=== PATIENT | male | born 1990 | race Caucasian/White ===

== ENCOUNTER 2023-02-05 19:35 | Inpatient (IN) | payer MEDICAID, SELFPAY ==
[2023-02-05 19:48] VITALS: BP 124/85; PULSE 97; RESP 18; TEMP 36.6; O2SAT 98
--- NOTE | 2023-02-05 20:20 | W.ED.PSYCHS ---
HPI - Psych General: Chief Complaint: Psychiatric Symptoms Stated Complaint: SI Time Seen by Provider: 02/05/23 20:00 Source: patient Mode of arrival: ambulatory Limitations: no limitations History of Present Illness: 32-year-old male states that he has been having increasing depression with suicidal thoughts over the last week. He states has been under a lot of stress he did recently broken up with his ex and been kicked out of the house. He states that he used to be on psych meds he was on Celexa he has not had them in quite some time he states that he has had thoughts of shooting himself along with other thoughts and needs to get help. Associated symptoms: Reports depression Review of Systems Const: Denies: fever(s), chills, body aches or change in appetite ENMT: Denies: throat pain or dental pain Card: Denies: chest pain Resp: Denies: dyspnea GI: Denies: abdominal pain, nausea, vomiting or diarrhea : Denies: dysuria Musc: Denies: neck pain or back pain Skin/Breast: Denies: rash Neuro: Denies: headache(s) Psych: Reports: depression Physical Exam Const: COMMON NORMALS: no acute distress, patient oriented x3 and healthy appearing HENMT: COMMON NORMALS: normocephalic and atraumatic HEAD & SCALP: normocephalic and atraumatic Eye: COMMON NORMALS: conjunctivae normal CONJUNCTIVA: Yes conjunctivae normal Neck/C-Spine: COMMON NORMALS: full ROM and supple Chest: COMMONS NORMALS: normal inspection of the chest and normal palpation of entire chest wall Resp: COMMON NORMALS: normal respiratory effort Cardio: COMMON NORMALS: regular rate, regular rhythm and No murmurs present (Cardio) RATE: regular rate RHYTHM: regular rhythm GI: INSPECTION: Yes normal to inspection Extremity: COMMON NORMALS: normal to inspection and full ROM Neuro: COMMON NORMALS: patient oriented x3, moves all extremities and no focal motor deficits Psych: COMMON NORMALS: mental status grossly normal, Normal thought process present and cooperative THOUGHT PROCESS: Normal thought process present THOUGHT CONTENT: Yes Suicidality present Skin: COMMON NORMALS: no rashes or lesions noted and no wounds GENERAL SKIN EXAM: no rashes or lesions noted Course Vital Signs: Vital signs: Vital Signs Temperature 97.9 F 02/05/23 19:48 Pulse Rate 97 02/05/23 19:48 Respiratory Rate 18 02/05/23 19:48 Blood Pressure 124/85 02/05/23 19:48 Pulse Oximetry 98 02/05/23 19:48 Oxygen Delivery Me thod Room Air 02/05/23 19:48 MDM - Psych Medical Decision Making Patient presents here with suicidal ideations he is medically cleared placed under 96-hour hold I spoke to psychiatrist will admit at this time. Medical Records I reviewed the patient's medical records. Lab Data I reviewed the patient's lab results. 02/05/23 20:26 02/05/23 20: Laboratory Results WBC 5.4 10^3/uL (4.0-10.0) 02/05/23: RBC 4.73 10^6/uL (4.1-5.3) 02/05/23: Hgb 14.4 g/dL (11.7-16.6) 02/05/23: Hct 42.0 % (42.0-52.0) 02/05/23: MCV 88.8 fl (80-94) 02/05/23 20: MCH 30.4 pg (28.0-34.0) 02/05/23: MCHC 34.3 g/dL (30.0-36.0) 02/05/23: RDW 13.2 % (12.1-15.1) 02/05/23 20: Plt Count 213 10^3/cmm (130-400) 02/05/23: MPV 10.0 fL (7.4-10.4) 02/05/23: Neut % (Auto) 47.2 % 02/05/23 20: Lymph % (Auto) 44.4 % 02/05/23: [place] % (Auto) 6.5 % 02/05/23: Eos % (Auto) 1.3 % 02/05/23: Baso % (Auto) 0.4 % 02/05/23: Neut # (Auto) 2.56 10^3/uL (1.8-7.7) 02/05/23: Lymph # (Auto) 2.4 10^3/uL (0.8-4.8) 02/05/23 20: [place] # (Auto) 0.4 10^3/uL (0.2-0.9) 02/05/23 20: Eos # (Auto) 0.1 10^3/uL (0.0-0.8) 02/05/23 20: Baso # (Auto) 0.0 10^3/uL (0.0-0.1) 02/05/23 20: Nucleated RBC % (auto) 0 % 02/05/23: Nucleated RBCs # 0.0 /100WBC 02/05/23 20: Sodium 140 mmol/L (136-145) 02/05/23 20: Potassium 4.0 mmol/L (3.5-5.1) 02/05/23: Chloride 104 mmol/L (98-107) 02/05/23: Carbon Dioxide 27 mmol/L (22-29) 02/05/23: Anion Gap 13.0 (5-19) 02/05/23: BUN 9 mg/dL (6-20) 02/05/23 20: Creatinine 1.2 mg/dL (0.7-1.2) 02/05/23 20: GFR Calculation 70.2 mL/min (90-130) L 02/05/23: Glucose 86 mg/dL (65-115) 02/05/23 20: Calculated Osmolality 288 mOsm/kg (285-295) 02/05/23: Calcium 8.9 mg/dL (8.5-10.5) 02/05/23: Total Bilirubin 0.6 mg/dL (0.15-1.2) 02/05/23 20: AST 23 U/L (0-40) 02/05/23: ALT 27 U/L (0-41) 02/05/23 20: Alkaline Phosphatase 100 U/L (40-130) 02/05/23 20: Total Protein 6.8 g/dL (6.6-8.7) 02/05/23 20: Albumin 4.3 g/dL (3.5-5.2) 02/05/23: Globulin 2.5 g/dL (1.3-4.6) 02/05/23 20:26 Salicylates < 0.3 mg/dL (3-10) L 02/05/23 20:26 Urine Opiates Screen Negative ng/mL (Negative) 02/05/23 20:11 Acetaminophen < 5.0 ug/mL (10-30) L 02/05/23 20:26 Ur Barbiturates Screen Negative ng/mL (Negative) 02/05/23 20:11 Ur Phencyclidine Scrn Negative ng/mL (Negative) 02/05/23 20:11 Ur Amphetamines Screen Positive ng/mL (Negative) H 02/05/23 20:11 U Benzodiazepines Scrn Negative ng/mL (Negative) 02/05/23 20:11 Urine Cocaine Screen Negative ng/mL (Negative) 02/05/23 20:11 U Marijuana (THC) Screen Negative ng/mL (Negative) 02/05/23 20:11 Ethyl Alcohol < 10 mg/dL (0-10) 02/05/23 20:26 Discharge Plan Discharge Admit Provider: Shane Wright Condition: Stable Coding Level of Care Code ED [facility] for Erum Betts
[2023-02-05 20:36] LABS: Basophils % 0.4 %; Eosinophils # 0.1 10^3/uL (0.0-0.8); Eosinophils % 1.3 %; Hemoglobin 14.4 g/dL (11.7-16.6); Lymphocytes # 2.4 10^3/uL (0.8-4.8); Lymphocytes % 44.4 %; Mean Corpuscular HGB Conc 34.3 g/dL (30.0-36.0); Mean Corpuscular Hemoglobin 30.4 pg (28.0-34.0); Mean Corpuscular Volume 88.8 fl (80-94); Monocytes # 0.4 10^3/uL (0.2-0.9); Monocytes % 6.5 %; Neutrophils # 2.56 10^3/uL (1.8-7.7); Neutrophils % 47.2 %; Nucleated Red Blood Cells % 0 %; Platelet Count 213 10^3/cmm (130-400); Red Blood Count 4.73 10^6/uL (4.1-5.3); Red Cell Distribution Width 13.2 % (12.1-15.1); White Blood Count 5.4 10^3/uL (4.0-10.0)
[2023-02-05 20:39] LABS: Amphetamines Screen Urine Positive (Negative); Barbiturates Screen Urine Negative (Negative); Benzodiazepines Screen Urine Negative (Negative); Cocaine Screen Urine Negative (Negative); Opiate Screen Urine Negative (Negative); PCP Screen Urine Negative (Negative); THC Screen Urine Negative (Negative)
--- NOTE | 2023-02-05 20:45 | PC.NURSE ---
Pt served with copy of 96 Hour Hold rights paperwork by this nurse and security. All questions answered.
[2023-02-05 20:51] LABS: Alanine Aminotransferase 27 U/L (0-41); Albumin Level 4.3 g/dL (3.5-5.2); Alkaline Phosphatase 100 U/L (40-130); Aspartate Amino Transferase 23 U/L (0-40); Blood Urea Nitrogen 9 mg/dL (6-20); Calcium 8.9 mg/dL (8.5-10.5); Carbon Dioxide 27 mmol/L (22-29); Chloride 104 mmol/L (98-107); Globulin 2.5 g/dL (1.3-4.6); Glomerular Filtration Rate 70.2 mL/min (90-130); Glucose 86 mg/dL (65-115); Osmolality Calculated 288 mOsm/kg (285-295); Sodium 140 mmol/L (136-145); Total Bilirubin 0.6 mg/dL (0.15-1.2); Total Protein 6.8 g/dL (6.6-8.7)
[2023-02-05 20:52] LABS: Acetaminophen < 5.0 ug/mL (10-30); Alcohol Level < 10 mg/dL (0-10); Salicylate < 0.3 mg/dL (3-10)
[2023-02-05 22:44] VITALS: BP 128/87; PULSE 81; RESP 16; TEMP 36.4; O2SAT 100
--- NOTE | 2023-02-05 23:21 | PC.NURSE ---
Pt arrived to NPU w/security and RN at side. Pt is cooperative and anxious. Assessment completed and showed to room. All questions answered.
[2023-02-06 06:00] VITALS: BP 115/75; PULSE 85; RESP 15; O2SAT 100
[2023-02-06 13:57] VITALS: BP 136/76; PULSE 80; RESP 18; TEMP 36.4; O2SAT 100
--- NOTE | 2023-02-06 14:03 | W.PM.NPUH&PS ---
Providers/Chief Complaint Admitting Physician: Shane Wright MD Chief Complaint: SI HPI NPU History of Present Illness Oz Astorga is a 32 year old male who presented to the emergency department with the following report: Chief Complaint: Psychiatric Symptoms Stated Complaint: SI Time Seen by Provider: 02/05/23 20:00 Source: patient Mode of arrival: ambulatory Limitations: no limitations History of Present Illness: 32-year-old male states that he has been having increasing depression with suicidal thoughts over the last week. He states has been under a lot of stress he did recently broken up with his ex and been kicked out of the house. He states that he used to be on psych meds he was on Celexa he has not had them in quite some time he states that he has had thoughts of shooting himself along with other thoughts and needs to get help. Associated symptoms: Reports depression. He was admitted to the neuropsychiatric unit for definitive treatment of those issues. He presents today reporting that he has been hospitalized a couple time before in this hospital. Last time was in 2017. An excerpt of that inpatient stay is included below for historical context. He presents today reporting that he does smoke cigarettes, he has no significant alcohol or marijuana use. But he does endorse that there has been methamphetamine use after a period of sobriety. He reports that the reason why he is here however is related to his volatile relationship with his girlfriend. He reports that they broke up recently and that he has been living with her and so now he has been somewhat struggling. He had an episode earlier where he was not able to answer questions from the social media assistant. We discussed the fact that it may in part have been secondary to paranoia secondary to the methamphetamine use with his positive UDS. We discussed the fact he is on 96-hour hold which frustrated him because he felt that he came down here for help. We discussed that at times he will initiate those even on voluntary patients who they have significant concerns about that patient's willingness for treatment. We discussed his treatment history and the depression experiencing. He reports having feelings of helplessness, hopelessness and worthlessness. He reports having sleep disruption, loss of interest and passive wish versus suicidal thoughts. He reports also having anxiety. We discussed some PTSD symptoms that he has had off and on since he was when he had a brother who committed suicide. He reports a lot of his difficulty started in including his drug use. We discussed the risks, benefits and alternatives of restarting Celexa 20 mg p.o. daily and he understood and agreed to proceed as is documented in this note. Per his 03/30/2017 [facility] inpatient psychiatric evaluation: Date of Service: Mar 30, 2017 Chief Complaint: Me and my been havin' problems, and threatened to kill myself. HPI: HISTORY OF PRESENT PROBLEM: This 26-year-old , recently unemployed, male with a history of major depressive disorder admitted voluntarily for suicidal ideation without a plan.? Patient reported recent stressors of losing his job and frequent arguments with his .? He reportedly relapsed on meth one week ago after a prior argument with his .? Since then he has been having increasing suicidal ideation and also vague generalized homicidal ideation.? he pt reports his had been calling the police at least 3 times recently for the patient making suicidal statements, but he repeatedly denied being suicidal when the police arrived so he would not have to come to the hospital.? However, the patient was increasingly concerned that he might harm himself and concerned about the long process of establishing outpatient care so decided to seek immediate help and drove himself to the police station for help yesterday and was admitted to the hospital. Psychiatric review of systems:? Reports depression for at least the past several weeks but worsened with suicidal ideation since relapsing on meth one week ago, also reports feelings of helplessness, decreased appetite, psychomotor retardation and reports chronic insomnia and daytime fatigue.? Denies anhedonia.? Denies any AH for years.? Denies any visual hallucinations or paranoia.? Does report a long history of anger dyscontrol issues, frequently loses his temper and yells and gets into fights with even strangers, throws and breaks things.? He denies any episodic periods of decreased need for sleep with sustained hyper/irritable mood other than and the context of immediately post meth use or risky behaviors.? He does endorse some generalized aggressive ideation but denies any specific homicidal ideation. Past psychiatric history: Patient has a history of [facility] [place].? past history of anger management and intermittent explosive disorder past NPU admission in 2011 for suicidal ideation and intermittent auditory hallucinations.? Denies hx SA.? Past meds- Celexa (other people felt it helped but pt reports feeling more anxious but less depressed on the medication). Past medical history:? Healthy.? Hx concussion.? No seizures/ surgeries. PCP- none Family history: Brother- completed suicide/ psychosis, Father- Bipolar Social history: , 2 sons, recently unemployed, eleventh grade education.? Past alf for meth a few years ago and then stopped using on his own but relapsed 1 time last week.? He denies any other illicit drug use or need for chemical dependency treatment.? Denies alcohol abuse. Meds NPU Home Medications Medication Instructions Recorded Confirmed Last Taken Type No Known Home Medications 02/05/23 02/05/23 Unknown History No Known Home Medications 02/05/23 02/05/23 Unknown History Allergies Allergy/AdvReac Type Severity Reaction Status Date / Time No Known Allergies Allergy Verified 02/05/23 23:09 Mental Status Exam MSE Comments: This is a slender white male in hospital scrubs with limited grooming and eye contact. No abnormal movements except for mild psychomotor agitation. Mostly cooperative with exam in no acute distress. Speech was normal rate and slightly decreased volume. Mood described as depressed, affect congruent. Thought process organized. Thought content: Patient denied current suicidal ideation but endorsed admission, he denied homicidal ideation, no delusions reported noted, he denied any auditory or visual hallucinations. Attention and concentration were mostly intact and memory appeared reliable but none were formally tested. He was alert and oriented x3. Insight and judgment are limited and impulse appropriate impaired. Vitals/I&O/Wt Last Vital Signs Temp 97.6 F 02/06/23 13:57 Pulse 80 02/06/23 13:57 Resp 18 02/06/23 13:57 BP 136/76 02/06/23 13:57 Pulse Ox 100 02/06/23 13:57 O2 Del Method Room Air 02/06/23 13:57 Weight last 48 hrs Weight 61.235 kg Data NPU 02/05/23 20:26 02/05/23 20:26 A&P Assessment and plan (1) Major depressive disorder, recurrent: (2) Methamphetamine use disorder, severe: (3) PTSD (post-traumatic stress disorder): Plan This is a 32-year-old white male with a long history of addiction and mental health challenges with genetic loading for mental health and addiction issues who presents with suicidal thoughts, depression and active addiction currently off of medication. 1. Continue current medication. Start Celexa 20 mg p.o. daily. 2. Encourage individual, group and milieu therapy. 3. Continue every 15 minute checks for safety. 4. Encourage sober living treatment after discharge at the highest level care to which patient is willing to commit. Involuntary Hold Information 96 Hour Hold: 96 Hour Involuntary Admission: Yes 96 Hour Hold Ending Date: 02/11/23 96 Hour Hold Ending Time: 20:16 Attestations NPU Medical Necessity Statement*: Inpatient hospitalization is medically necessary and the clinically appropriate intervention at this time. We will monitor medications and make changes as indicated. He will be in the hospital for over 2 midnights. Likely to stay 2 to 5 days. Coding Level of Care Code Acute Code for [facility] Fwd Diagnoses Major depressive disorder, recurrent F33.9 Methamphetamine use disorder, severe F15.20 PTSD (post-traumatic stress disorder) F43.10
[2023-02-06] MEDS: citalopram 20 mg Tablet PO (14:26)
[2023-02-06] MEDS: nicotine 2 mg Gum BUCCAL (18:31)
[2023-02-06 21:23] VITALS: BP 125/79; PULSE 72; RESP 14; TEMP 36.6; O2SAT 99
[2023-02-07 06:00] VITALS: BP 122/82; PULSE 86; RESP 12; TEMP 36.7; O2SAT 99
[2023-02-07] MEDS: nicotine 2 mg Gum BUCCAL ×2 (07:36→12:03)
[2023-02-07] MEDS: citalopram 20 mg Tablet PO (09:41)
[2023-02-07 14:00] VITALS: BP 118/76; PULSE 115; TEMP 36.6; O2SAT 98
[2023-02-07] MEDS: nicotine 4 mg lozenge MUCOUS MEM (16:11)
--- NOTE | 2023-02-07 17:41 | W.PM.NPUPNS ---
Subjective NPU Subjective: Patient presented today reporting that he has not talked to his family and reports a desire to get back there sooner rather than later. He reports that he has tolerated the resumption of the Celexa and reports that he feels better overall. He denies any side effects of the medication and reports that his withdrawal from the methamphetamine has been without incident. We discussed the possibility discharge in the next 48 hours. Mental Status Exam MSE Comments: This is a slender white male in hospital scrubs with limited grooming and eye contact. No abnormal movements except for mild psychomotor agitation. Mostly cooperative with exam in no acute distress. Speech was normal rate and slightly decreased volume. Mood described as better, affect congruent. Thought process organized. Thought content: Patient denied current suicidal ideation but endorsed admission, he denied homicidal ideation, no delusions reported noted, he denied any auditory or visual hallucinations. Attention and concentration were mostly intact and memory appeared reliable but none were formally tested. He was alert and oriented x3. Insight and judgment are limited and impulse appropriate impaired. Vitals/I&O/Wt Last Vital Signs Temp 97.7 F 02/07/23 20:01 Pulse 99 02/07/23 20:01 Resp 16 02/07/23 20:01 BP 138/82 02/07/23 20:01 Pulse Ox 98 02/07/23 20:01 O2 Del Method Room Air 02/07/23 20:01 Data NPU 02/05/23 20:26 02/05/23 20:26 A&P Assessment and plan (1) Major depressive disorder, recurrent: (2) Methamphetamine use disorder, severe: (3) PTSD (post-traumatic stress disorder): Plan This is a 32-year-old white male with a long history of addiction and mental health challenges with genetic loading for mental health and addiction issues who presents with suicidal thoughts, depression and active addiction currently off of medication. 1. Continue current medication. Started Celexa 20 mg p.o. daily. 2. Encourage individual, group and milieu therapy. 3. Continue every 15 minute checks for safety. 4. Encourage sober living treatment after discharge at the highest level care to which patient is willing to commit. Involuntary Hold Information 96 Hour Hold: 96 Hour Involuntary Admission: Yes 96 Hour Hold Ending Date: 02/11/23 96 Hour Hold Ending Time: 20:16 Attestations NPU Medical Necessity Statement*: Inpatient hospitalization is medically necessary and the clinically appropriate intervention at this time. We will monitor medications and make changes as indicated. Likely to stay 1-3 days. Coding Level of Care Code Acute Code for [facility] Fwd Diagnoses Major depressive disorder, recurrent F33.9 Methamphetamine use disorder, severe F15.20 PTSD (post-traumatic stress disorder) F43.10
[2023-02-07 20:01] VITALS: BP 138/82; PULSE 99; RESP 16; TEMP 36.5; O2SAT 98
[2023-02-08] MEDS: acetaminophen 325 mg Tablet 650 MG PO (01:50)
[2023-02-08 06:00] VITALS: BP 121/79; PULSE 77; RESP 16; TEMP 36.4; O2SAT 98
[2023-02-08] MEDS: nicotine 4 mg lozenge MUCOUS MEM (07:35)
[2023-02-08] MEDS: nicotine 2 mg Gum BUCCAL (09:48)
--- NOTE | 2023-02-08 12:14 | W.PM.NPUDCS ---
Diagnoses at Discharge Discharge Diagnosis (1) Major depressive disorder, recurrent: Status: Acute (2) Methamphetamine use disorder, severe: Status: Acute (3) PTSD (post-traumatic stress disorder): Status: Acute Reason for Visit Reason for Visit: SI Brief History: History of Present Illness Oz Astorga is a 32 year old male who presented to the emergency department with the following report: Chief Complaint: Psychiatric Symptoms Stated Complaint: SI Time Seen by Provider: 02/05/23 20:00 Source: patient Mode of arrival: ambulatory Limitations: no limitations History of Present Illness:?? 32-year-old male states that he has been having increasing depression with suicidal thoughts over the last week.? He states has been under a lot of stress he did recently broken up with his ex and been kicked out of the house.? He states that he used to be on psych meds he was on Celexa he has not had them in quite some time he states that he has had thoughts of shooting himself along with other thoughts and needs to get help. ? Associated symptoms: Reports depression. He was admitted to the neuropsychiatric unit for definitive treatment of those issues.? He presents today reporting that he has been hospitalized a couple time before in this hospital.? Last time was in 2017.? An excerpt of that inpatient stay is included below for historical context.? He presents today reporting that he does smoke cigarettes, he has no significant alcohol or marijuana use.? But he does endorse that there has been methamphetamine use after a period of sobriety.? He reports that the reason why he is here however is related to his volatile relationship with his girlfriend.? He reports that they broke up recently and that he has been living with her and so now he has been somewhat struggling.? He had an episode earlier where he was not able to answer questions from the social research assistant.? We discussed the fact that it may in part have been secondary to paranoia secondary to the methamphetamine use with his positive UDS.? We discussed the fact he is on 96-hour hold which frustrated him because he felt that he came down here for help.? We discussed that at times he will initiate those even on voluntary patients who they have significant concerns about that patient's willingness for treatment.? We discussed his treatment history and the depression experiencing.? He reports having feelings of helplessness, hopelessness and worthlessness.? He reports having sleep disruption, loss of interest and passive wish versus suicidal thoughts.? He reports also having anxiety.? We discussed some PTSD symptoms that he has had off and on since he was when he had a brother who committed suicide.? He reports a lot of his difficulty started in including his drug use.? We discussed the risks, benefits and alternatives of restarting Celexa 20 mg p.o. daily and he understood and agreed to proceed as is documented in this note. Per his 03/30/[address] [facility] inpatient psychiatric evaluation: Date of Service: Mar 30, 2017 Chief Complaint: Me and my been havin' problems, and threatened to kill myself. HPI: HISTORY OF PRESENT PROBLEM: This 26-year-old , recently unemployed, male with a history of major depressive disorder admitted voluntarily for suicidal ideation without a plan.? Patient reported recent stressors of losing his job and frequent arguments with his .? He reportedly relapsed on meth one week ago after a prior argument with his .? Since then he has been having increasing suicidal ideation and also vague generalized homicidal ideation.? he pt reports his had been calling the police at least 3 times recently for the patient making suicidal statements, but he repeatedly denied being suicidal when the police arrived so he would not have to come to the hospital.? However, the patient was increasingly concerned that he might harm himself and concerned about the long process of establishing outpatient care so decided to seek immediate help and drove himself to the police station for help yesterday and was admitted to the hospital. Psychiatric review of systems:? Reports depression for at least the past several weeks but worsened with suicidal ideation since relapsing on meth one week ago, also reports feelings of helplessness, decreased appetite, psychomotor retardation and reports chronic insomnia and daytime fatigue.? Denies anhedonia.? Denies any AH for years.? Denies any visual hallucinations or paranoia.? Does report a long history of anger dyscontrol issues, frequently loses his temper and yells and gets into fights with even strangers, throws and breaks things.? He denies any episodic periods of decreased need for sleep with sustained hyper/irritable mood other than and the context of immediately post meth use or risky behaviors.? He does endorse some generalized aggressive ideation but denies any specific homicidal ideation. Past psychiatric history: Patient has a history of [facility] [place].? past history of anger management and intermittent explosive disorder past [facility] admission in 2011 for suicidal ideation and intermittent auditory hallucinations.? Denies hx SA.? Past meds- Celexa (other people felt it helped but pt reports feeling more anxious but less depressed on the medication). Past medical history:? Healthy.? Hx concussion.? No seizures/ surgeries. PCP- none Family history: Brother- completed suicide/ psychosis, Father- Bipolar Social history: , 2 sons, recently unemployed, eleventh grade education.? Past group home for meth a few years ago and then stopped using on his own but relapsed 1 time last week.? He denies any other illicit drug use or need for chemical dependency treatment.? Denies alcohol abuse. Hospital Course Hospital Course He slowly acclimated to the individual, group and milieu therapies. He presented with depression and active addiction. He was initially resistant to identifying the addiction as a problem begin some limited insight in that area during his stay. He was restarted on Celexa 20 mg p.o. every morning with a good response. He had significant improvement and worked with the social work teammon discharge as well as other aftercare arrangements. He was able to contract for safety outside the hospital prior to discharge. During the hospitalization, patient had routine laboratory studies which were within normal limits except for few outliers. Additionally there was a general medical evaluation which was also within normal limits and revealed no new acute processes. At the time of discharge, he denied psychosis or lethality. Mood and anxiety were well managed. Patient endorsed a plan to avoid all drugs of abuse and follow-up with the aftercare recommendations of the treatment team. Patient was evaluated and deemed to be absent credible lethality, and had achieved the maximum benefit from an inpatient hospitalization, so was discharged. Involuntary Hold Information 96 Hour Hold: 96 Hour Involuntary Admission: Yes 96 Hour Hold Ending Date: 02/11/23 96 Hour Hold Ending Time: 20:16 Mental Status Exam MSE Comments: This is a slender white male in hospital scrubs with limited grooming and eye contact. No abnormal movements except for mild psychomotor agitation. More cooperative with exam in no acute distress. Speech was normal rate and slightly decreased volume. Mood described as better, affect congruent. Thought process organized. Thought content: Patient denied current suicidal ideation but endorsed admission, he denied homicidal ideation, no delusions reported noted, he denied any auditory or visual hallucinations. Attention and concentration were mostly intact and memory appeared reliable but none were formally tested. He was alert and oriented x3. Insight and judgment are limited and impulse appropriate improving. Discharge Data Studies Completed and Pending: Laboratory Results WBC 5.4 10^3/uL (4.0- 10.0) 02/05/23 20: RBC 4.73 10^6/uL (4.1 -5.3) 02/05/23: Hgb 14.4 g/dL (11.7-1 6.6) 02/05/23: Hct 42.0 % (42.0-52.0 ) 02/05/23: MCV 88.8 fl (80-94) 02/05/23: MCH 30.4 pg (28.0-34. 0) 02/05/23: MCHC 34.3 g/dL (30.0-3 6.0) 02/05/23: RDW 13.2 % (12.1-15.1 ) 02/05/23: Plt Count 213 10^3/cmm (130 -400) 02/05/23: MPV 10.0 fL (7.4-10.4 ) 02/05/23: Neut % (Auto) 47.2 % 02/05/23: Lymph % (Auto) 44.4 % 02/05/23: Baldwin % (Auto) 6.5 % 02/05/23: Eos % (Auto) 1.3 % 02/05/23: Baso % (Auto) 0.4 % 02/05/23: Neut # (Auto) 2.56 10^3/uL (1.8 -7.7) 02/05/23: Lymph # (Auto) 2.4 10^3/uL (0.8- 4.8) 02/05/23: Baldwin # (Auto) 0.4 10^3/uL (0.2- 0.9) 02/05/23 20: Eos # (Auto) 0.1 10^3/uL (0.0- 0.8) 02/05/23: Baso # (Auto) 0.0 10^3/uL (0.0- 0.1) 02/05/23 20: Nucleated RBC % (a uto) 0 % 02/05/23 20: Nucleated RBCs # 0.0 /100WBC 02/05/23 20: Sodium 140 mmol/L (136-1 45) 02/05/23 20: Potassium 4.0 mmol/L (3.5-5 .1) 02/05/23 20: Chloride 104 mmol/L (98-10 7) 02/05/23 20: Carbon Dioxide 27 mmol/L (22-29) 02/05/23 20: Anion Gap 13.0 (5-19) 02/05/23 20: BUN 9 mg/dL (6-20) 02/05/23: Creatinine 1.2 mg/dL (0.7-1. 2) 02/05/23 20: GFR Calculation 70.2 mL/min (90-1 30) L 02/05/23: Glucose 86 mg/dL (65-115) 02/05/23 20: Calculated Osmolal ity 288 mOsm/kg (285- 295) 02/05/23 20: Calcium 8.9 mg/dL (8.5-10 .5) 02/05/23: Total Bilirubin 0.6 mg/dL (0.15-1 .2) 02/05/23 20: AST 23 U/L (0-40) 02/05/23 20: ALT 27 U/L (0-41) 02/05/23 20: Alkaline Phosphata se 100 U/L (40-130) 02/05/23 20: Total Protein 6.8 g/dL (6.6-8.7 ) 02/05/23 20: Albumin 4.3 g/dL (3.5-5.2 ) 02/05/23 20: Globulin 2.5 g/dL (1.3-4.6 ) 02/05/23 20: Salicylates < 0.3 mg/dL (3-10 ) L 02/05/23 20: Urine Opiates Scre en Negative ng/mL (N egative) 02/05/23 20: Acetaminophen < 5.0 ug/mL (10-3 0) L 02/05/23 20:26 Ur Barbiturates Sc reen Negative ng/mL (N egative) 02/05/23 20:11 Ur Phencyclidine S crn Negative ng/mL (N egative) 02/05/23 20:11 Ur Amphetamines Sc reen Positive ng/mL (N egative) H 02/05/23 20:11 U Benzodiazepines Scrn Negative ng/mL (N egative) 02/05/23 20:11 Urine Cocaine Scre en Negative ng/mL (N egative) 02/05/23 20:11 U Marijuana (THC) Screen Negative ng/mL (N egative) 02/05/23 20:11 Ethyl Alcohol < 10 mg/dL (0-10) 02/05/23 20:26 Vitals: Last Vital Signs Temp 97.6 F 02/08/23 06:00 Pulse 77 02/08/23 06:00 Resp 16 02/08/23 06:00 BP 121/79 02/08/23 06:00 Pulse Ox 98 02/08/23 06:00 O2 Del Method Room Air 02/08/23 06:00 Discharge Plan Discharge Patient Disposition: Home Condition: Stable Prescriptions: New citalopram 20 mg Tablet 20 mg PO DAILY 30 Days Qty: 30 1RF No Action No Known Home Medications No Known Home Medications Discharge Orders: Discharge Order (Routine); Ordered 02/08/23 Ordered By: Shane Wright Referrals: [facility] [Other] - 1-3 days (Go to [email or web address] and receive financial rewards for recovery progress. The also provide group and individual therapy, medication management, and life enhancement services.) [facility] [Other] - 02/14/23 10:30 am (Arrive 10:30 on 02/14/23 to complete paperwork and appointment is at 11am.) Discharge Diet: Regular Discharge Activity: Resume usual activity Patient Instructions: Citalopram (By mouth) (Celexa), Citalopram (By mouth), Depression (DC), PTSD (Post Traumatic Stress Disorder) (DC), Methamphetamine Use Disorder (DC), Opioid Safety Discharge Attestations [facility] Time Spent in Discharge Care*: less than 30 min Specific Discharge Activities: Specific discharge activities: educating patient, discussing with rn case management/social workers/dc planners, documenting/other paperwork and evaluating patient/reviewing data Coding Level of Care Code Acute Chg FW DC note Diagnoses Major depressive disorder, recurrent F33.9 Methamphetamine use disorder, severe F15.20 PTSD (post-traumatic stress disorder) F43.10
[2023-02-08 12:20] VITALS: BP 121/79; PULSE 77; RESP 16; TEMP 36.4; O2SAT 98
[2023-02-08] MEDS: citalopram 20 mg Tablet PO (12:47)
--- NOTE | 2023-02-08 12:48 | PC.NURSE ---
written discharge instruction discussed and left with patient. personal belonging reviewed with and left with patient. new medication from pharmacy given to patient. pt left via friends pov.
== END 2023-02-08 12:49 | disposition home or self-care (01) | DRG 885 ==
LOC: ER 20:25 → NP 21:38
PROVIDERS: Admitting Provider Psychiatry & Neurology Psychiatry; Emergency Provider Emergency Medicine; Visit Provider Psychiatry & Neurology Psychiatry
DX: F33.9 Major depressive disorder, recurrent, unspecified (principal); R45.851 Suicidal ideations; F15.20 Other stimulant dependence, uncomplicated; Z63.0 Problems in relationship with spouse or partner; F17.210 Nicotine dependence, cigarettes, uncomplicated; F41.9 Anxiety disorder, unspecified; F43.10 Post-traumatic stress disorder, unspecified
CPT/HCPCS: 36415; 80053; 80306; 80307; 85025; 97150; 97165; 99238; 99285